=== PATIENT | female | born 1990 | race Caucasian/White ===

== ENCOUNTER 2017-09-16 04:40 | Emergency (ER) | payer OTHER ==
[~2017-09-16] VITALS: Ht 165.1 cm; Wt 59.4 kg
[~2017-09-16 04:40] MED LIST: ANTIVERT 25MG #1 PAC PO; IBUPROFEN600 M1 PO; MOBIC15 M1 PO; TRI-LO-MARZIA1 EACH PO; VICODIN5-300 PO
--- NOTE | 2017-09-16 04:51 | ED GENERAL ADULT ---
History of Present Illness General Chief Complaint: Skin Rash/ Abcess Stated Complaint: PT C/O ? CYST TO LT SHOULDER Source: patient Exam Limitations: no limitations Vital Signs & Intake/Output Vital Signs & Intake/Output Vital Signs Date Time Temp Pulse Resp B/P B/P Pulse O2 O2 Flow FiO2 Mean Ox Delivery Rate 09/16 0625 98.7 70 16 134/80 98 09/16 0453 98.4 69 16 150/101 100 Room Air Allergies Coded Allergies: raspberry (RASH 08/16/17) wheat (VOMITING AND UPDET STOMACH 08/16/17) Reconcile Medications Doxycycline Hyclate (Vibramycin) 100 MG CAPSULE 1 CAP PO BID ABSCESS Ibuprofen 600 MG TABLET 1 TAB PO Q6P PRN pain with food Norgestimate-Ethinyl Estradiol (Bti-Gb-Baossp Tablet) [id number] LO TABLET 1 TAB PO DAILY CONTROL (Reported) Triage Nurses Notes Reviewed? yes Onset: Gradual Duration: week(s): Timing: recent history HPI: 09/16/17 27-year-old female presents to the emergency department with an infected sebaceous cyst of the left posterior shoulder. The patient states she's had the cyst for several months now it's become tender red and painful. She denies any other past medical history of complaints. Procedure under sterile technique and local anesthesia the infected sebaceous cyst was incised and drained with 5 mL of 1% lidocaine without epinephrine and a size 11 scalpel blade. Caseous material and pus was extruded. The abscess cavity was cleaned with saline and packed with iodoform and a sterile dressing was applied. A culture was sent. Past History Travel History Traveled to [place] past 21 day No Medical History Any Pertinent Medical History? 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 No Review of Systems Review of Systems Constitutional: Denies: fever. EENTM: Denies: visual changes. Respiratory: Denies: short of breath. Cardiovascular: Denies: chest pain. GI: Denies: abdominal pain. Genitourinary: Reports: see HPI. Musculoskeletal: Reports: no symptoms. Skin: Reports: see HPI. Neurological/Psychological: Reports: no symptoms. Hematologic/Endocrine: Reports: no symptoms. Immunologic/Allergic: Reports: no symptoms. Physical Exam Physical Exam General Appearance: well developed/nourished, alert, awake, anxious, mild distress Head: atraumatic, normal appearance Eyes: Bilateral: normal appearance, PERRL, EOMI. Ears, Nose, Throat: normal pharynx, normal ENT inspection Neck: normal inspection, supple Respiratory: normal breath sounds, chest non-tender, no respiratory distress Cardiovascular: regular rate/rhythm Peripheral Pulses: 4+ radial (R), 4+ radial (L) Gastrointestinal: non-tender Back: normal range of motion Extremities: normal range of motion Neurologic/Psych: no motor/sensory deficits, alert, oriented x 3 Skin: intact, one-inch infected sebaceous cyst left shoulder Core Measures ACS in differential dx? No CVA/TIA Diagnosis: No Sepsis Present: No Sepsis Focused Exam Completed? No Progress Differential Diagnoses I considered the following diagnoses in my evaluation of the patient: [Abscess, cellulitis, induration, infected sebaceous cyst, necrotizing fasciitis, tumor] Plan of Care: Orders Procedure Date/time Status EXTREMETIES CULTURE 09/17 623 Active Microbiology 09/16 629 EXTREMITIE: Culture & Sensitivity - RECD 09/16 629 EXTREMITIE: Gram Stain - RECD Initial ED EKG: none Departure Departure Disposition: HOME OR SELF CARE Condition: Stable Clinical Impression Primary Impression: Infected sebaceous cyst of skin Referrals: Mary Ann Charles DO (PCP/Family) Departure Forms: Customer Survey General Discharge Information Prescriptions: Current Visit Scripts Doxycycline Hyclate (Vibramycin) 1 CAP PO BID #14 CAP Comments follow up in the ED in 48 hours for packing removal and reevaluation. Doxycycline is told. She denied any possibility of . Ibuprofen for pain. Critical Care Note Critical Care Note Critical Care Time: non-applicable
[2017-09-16] MEDS ORDERED: VIBRAMYCIN100 MG PO ×2 (06:18→06:23)
[2017-09-16 06:25] VITALS: BP 134/80
== END 2017-09-16 06:32 ==
LOC: ERH 04:40
DX: L72.3 Sebaceous cyst (principal)
CPT/HCPCS: 87070; J2001

== ENCOUNTER 2017-09-17 14:07 | Emergency (ER) | payer OTHER ==
[~2017-09-17 14:07] MED LIST changes: +VIBRAMYCIN100 MG PO
[2017-09-17 14:48] VITALS: BP 131/81
--- NOTE | 2017-09-17 15:43 | ED GENERAL ADULT ---
History of Present Illness General Chief Complaint: Suture Removal/Wound Recheck Stated Complaint: WOUND CHECK/PACKING REMOVED Source: patient Exam Limitations: no limitations Vital Signs & Intake/Output Vital Signs & Intake/Output Vital Signs Date Time Temp Pulse Resp B/P B/P Pulse O2 O2 Flow FiO2 Mean Ox Delivery Rate 09/17 1533 Room Air 09/17 1448 98.5 65 18 131/81 99 Room Air Allergies Coded Allergies: raspberry (RASH 08/16/17) wheat (VOMITING AND UPDET STOMACH 08/16/17) Reconcile Medications Doxycycline Hyclate (Vibramycin) 100 MG CAPSULE 1 CAP PO BID ABSCESS Ibuprofen 600 MG TABLET 1 TAB PO Q6P PRN pain with food Norgestimate-Ethinyl Estradiol (Ygc-Zw-Wmqpkd Tablet) [id number] LO TABLET 1 TAB PO DAILY CONTROL (Reported) Triage Note: 27F WAS SEEN SUNDAY AT 0300 FOR ABSCESS TO BACK OF SHOULDER NEAR AXILLA AND IT WAS PACKED. WAS TOLD TO COME IN FOR PACKING REMOVAL AND REEVAL. NO SURROUNDING ERYTHEMA OBSERVED. PAIN 4/10. CURRENTLY ON KEFLEX. DENIES FEVERS/CHILLS Triage Nurses Notes Reviewed? yes Onset: Gradual Duration: day(s): Timing: constant : No Patient currently breastfeeds: No HPI: 27-year-old female with a history of childhood meningitis presenting for wound recheck. Patient was seen in the emergency department approximately 36 hours ago for I&D of an abscess to her left upper back. She had packing placed and has not changed the dressing was soaked the area since. Was prescribed Keflex which she has been taking as prescribed. Denies fevers. Unsure of any purulent drainage, as she has not taken down the wound dressing. (Emily Magallon) Past History Travel History Traveled to [place] past 21 day No Medical History Any Pertinent Medical History? 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 No (Emily Magallon) Review of Systems Review of Systems Constitutional: Reports: no symptoms. EENTM: Reports: no symptoms. Respiratory: Reports: no symptoms. Cardiovascular: Reports: no symptoms. GI: Reports: no symptoms. Genitourinary: Reports: no symptoms. Musculoskeletal: Reports: no symptoms. Skin: Reports: see HPI. Neurological/Psychological: Reports: no symptoms. Hematologic/Endocrine: Reports: no symptoms. Immunologic/Allergic: Reports: no symptoms. All Other Systems: Reviewed and Negative (Emily Magallon) Physical Exam Physical Exam General Appearance: well developed/nourished, no apparent distress, alert, awake , comfortable Head: atraumatic, normal appearance Eyes: Bilateral: normal appearance. Neck: normal inspection Respiratory: normal breath sounds, lungs clear Cardiovascular: regular rate/rhythm Gastrointestinal: soft, non-tender Back: I&D site to left upper back with packing in place, packing was removed and there is a scant amount of purulent drainage expressed, no surrounding erythema Extremities: normal inspection Neurologic/Psych: awake, alert, oriented x 3, normal gait, normal mood/affect Skin: intact, normal color, warm/dry Core Measures ACS in differential dx? No CVA/TIA Diagnosis: No Sepsis Present: No Sepsis Focused Exam Completed? No (Emily Magallon) Progress Differential Diagnoses I considered the following diagnoses in my evaluation of the patient: [Abscess versus cellulitis, low concern for sepsis] Plan of Care: New packing was placed as the wound still has a scant amount of purulent drainage. Performed additional irrigation and the loculation. Instructed that she must soak the area 2-3 times daily to help express the remainder of the purulent drainage. She will continue her Keflex as prescribed. She'll return to the emergency department in 2 days for wound check and given strict return precautions. Initial ED EKG: none (Emily Magallon) Departure Departure Disposition: HOME OR SELF CARE Condition: Stable Clinical Impression Primary Impression: Abscess Referrals: Mary Ann Charles DO (PCP/Family) Additional Instructions: Silk the area 2-3 times daily in warm water with Epson salt. Continue taking her antibiotic as prescribed. Return to the emergency department in 2 days for a wound check, or sooner for any new or worsening symptoms. Departure Forms: Customer Survey General Discharge Information (Emily Magallon) PA/ORACLE ENGINEER Co-Sign Statement Statement: ED Attending supervision documentation- I saw and evaluated the patient. I have also reviewed all the pertinent lab results and diagnostic results. I agree with the findings and the plan of care as documented in the PA's/ORACLE ENGINEER's documentation. x I have reviewed the ED Record and agree with the PA's/ORACLE ENGINEER's documentation. [] Additions or exceptions (if any) to the PAs/ORACLE ENGINEER's note and plan are summarized below: [] (Erika ALEGRE,Suhail) Critical Care Note Critical Care Note Critical Care Time: non-applicable (Emily Magallon)
== END 2017-09-17 15:51 ==
LOC: ERH 14:07
DX: Z48.00 Encounter for change or removal of nonsurgical wound dressing (principal)

== ENCOUNTER 2017-09-19 20:37 | Emergency (ER) | payer OTHER ==
[2017-09-19 20:47] VITALS: BP 132/82
--- NOTE | 2017-09-19 21:45 | ED ANIMAL BITE/WOUND CHECK ---
History of Present Illness General Chief Complaint: Suture Removal/Wound Recheck Stated Complaint: WOUND CHECK Source: patient Exam Limitations: no limitations Vital Signs & Intake/Output Vital Signs & Intake/Output Vital Signs Date Time Temp Pulse Resp B/P B/P Pulse O2 O2 Flow FiO2 Mean Ox Delivery Rate 09/19 2152 Room Air 09/19 2046 98.6 72 17 132/82 97 Room Air Allergies Coded Allergies: raspberry (RASH 08/16/17) wheat (VOMITING AND UPDET STOMACH 08/16/17) Reconcile Medications Doxycycline Hyclate (Vibramycin) 100 MG CAPSULE 1 CAP PO BID ABSCESS Ibuprofen 600 MG TABLET 1 TAB PO Q6P PRN pain with food Norgestimate-Ethinyl Estradiol (Zpm-Hh-Onusdi Tablet) [id number] LO TABLET 1 TAB PO DAILY CONTROL (Reported) Triage Note: PT TO ED FOR WOUND RE-CHECK, PACKING REMOVAL TO LEFT SHOULDER ABSCESS. DENIES PAIN, FEVERS, OR DISCHARGE Triage Nurses Notes Reviewed? yes Onset: Abrupt Duration: day(s):, constant Timing: recent history Injury Environment: home : No Patient currently breastfeeds: No HPI: 27-year-old female comes into the emergency room for further evaluation of wound check to abscess to left shoulder. She was seen here the other day for a packing change. She comes in for another wound check. She reports significant improvement in pain and swelling. Denies any fever chills. She is currently on doxycycline. (Blaine Mistry) Past History Travel History Traveled to [place] past 21 day No Medical History Any Pertinent Medical History? 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 No (Blaine Mistry) Review of Systems Review of Systems Constitutional: Reports: no symptoms. EENTM: Reports: no symptoms. Respiratory: Reports: no symptoms. Cardiovascular: Reports: no symptoms. GI: Reports: no symptoms. Genitourinary: Reports: no symptoms. Musculoskeletal: Reports: no symptoms. Skin: Reports: see HPI. Neurological/Psychological: Reports: no symptoms. Hematologic/Endocrine: Reports: no symptoms. Immunologic/Allergic: Reports: no symptoms. All Other Systems: Reviewed and Negative (Blaine Mistry) Physical Exam Physical Exam General Appearance: well developed/nourished, mild distress Head: atraumatic Eyes: Bilateral: normal appearance. Ears, Nose, Throat: normal ENT inspection, hearing grossly normal Neck: normal inspection Respiratory: no respiratory distress Back: normal inspection Extremities: normal range of motion Neurologic/Psych: awake, alert, oriented x 3, normal mood/affect Skin: intact, normal color, warm/dry, 0.5 cm open wound left shoulder, no erythema, packing removed, no drainage, no induration, Lymphatic: no anterior cervical cristiana (Blaine Mistry) Progress Differential Diagnosis: abscess, cellulitis, joint infection, tenosysnovitis Plan of Care: 09/19/2017 10:57:52 PM Patient clinically looks well. In no apparent distress. Nontoxic-appearing. Healing well. (Blaine Mistry) Departure Departure Disposition: HOME OR SELF CARE Condition: Stable Clinical Impression Primary Impression: Encounter for wound re-check Referrals: Mary Ann Charles DO (PCP/Family) Additional Instructions: Warm compresses over the area. Continue oral antibiotics. Return if any concerns worsening symptoms. Please go over all results of today's visit with your primary care doctor. Contact your primary care doctor to let them know you were here in the emergency room. There may be nonspecific findings which may not be related to your visit today here in the emergency room but may require further evaluation and chronic monitoring by your primary care doctor. If you had a laceration today the chance of foreign body always remains. You should follow-up with your primary care doctor for recheck in 3-5 days for a wound check. If you had an x-ray done there is a chance that a fracture could have been missed on initial read and you should follow-up with your primary care doctor for repeat x-rays if symptoms persist. If your blood pressure was elevated here in the emergency room please have rechecked by the [facility] primary care doctor within the next 48. If you were prescribed a narcotic here in the emergency room or any type of controlled substances you're not allowed to drive while taking this medication or operate any type of heavy machinery. Narcotics can make you feel lightheaded dizziness nausea and can cause constipation. You may need to poultry picker a stool softener. Thank you for choosing emergency room. Please return to the emergency room immediately if you have any other concerns worsening of symptoms. Departure Forms: Customer Survey General Discharge Information (Blaine Mistry) PA/SKELP PROCESSOR Co-Sign Statement Statement: ED Attending supervision documentation- I saw and evaluated the patient. I have also reviewed all the pertinent lab results and diagnostic results. I agree with the findings and the plan of care as documented in the PA's/SKELP PROCESSOR's documentation. x I have reviewed the ED Record and agree with the PA's/SKELP PROCESSOR's documentation. [] Additions or exceptions (if any) to the PAs/SKELP PROCESSOR's note and plan are summarized below: [] (Erika ALEGRE,Suhail)
== END 2017-09-19 22:02 ==
LOC: ERH 20:37
DX: Z48.00 Encounter for change or removal of nonsurgical wound dressing (principal)